=== PATIENT | male | born 1945 | race African-American/Black ===

== ENCOUNTER 2023-06-02 09:02 | Day surgery (SDC) | payer OTHER ==
[2023-05-24 15:14] VITALS: BMI 23.2
[2023-06-02 11:55] VITALS: BP 119/55; PULSE 68; TEMP 97.8
[2023-06-02 12:00] VITALS: RESP 18
== END 2023-06-02 11:55 ==
LOC: FASU-ENDO 09:02
PROVIDERS: ATTEND Internal Medicine Gastroenterology
PROC: 0DJD8ZZ Inspection of Lower Intestinal Tract, Via Natural or Artificial Opening Endoscopic (ICD-10-PCS; principal; 2023-06-02 10:34)
DX: Z12.11 Encounter for screening for malignant neoplasm of colon (principal); K64.1 Second degree hemorrhoids

== ENCOUNTER 2024-04-22 10:26 | Emergency (ER) | payer OTHER ==
[2024-04-22 10:38] VITALS: BMI 20.9
[2024-04-22 12:23] LABS: BASO % 0.3 % (0-2.0); EOS % 2.3 % (0-4.5); HEMATOCRIT 43.4 % (35.4-49); HEMOGLOBIN 14.4 GM/dL (11.7-16.9); MCH 27.3 pg (25.7-33.7); MCHC 33.1 g/dl (32.0-35.9); MEAN CELL VOLUME 82.5 fl (80-96); MEAN PLT VOLUME 8.6 fl (7.5-11.1); MONO % 13.4 % (3.8-10.2); PLATELET COUNT 149 10^3/uL (134-434); RBC 5.26 M/mm3 (4.00-5.60); RDW 15.3 % (11.9-15.9); WHITE BLOOD COUNT 5.6 K/mm3 (4.0-10.0)
[2024-04-22 13:27] LABS: ALBUMIN 3.7 g/dl (3.4-5.0); CALCIUM 8.8 mg/dL (8.5-10.1)
[2024-04-22 13:30] LABS: CREATININE 1.1 mg/dL (0.55-1.3)
[2024-04-22 13:33] LABS: BILIRUBIN,TOTAL 0.7 mg/dL (0.2-1); TOT PROT 6.9 g/dl (6.4-8.2)
[2024-04-22] MEDS: DIPHTH,PERTUSS(ACELL),TET 0.5 ML DISP.SYRIN IM ONE (14:27)
[2024-04-22] MEDS ORDERED: DIPHTH,PERTUSS(ACELL),TET 0.5 ML DISP.SYRIN IM ONE (14:27)
[2024-04-22 14:55] VITALS: BP 119/64; PULSE 72; RESP 17; TEMP 98
== END 2024-04-22 16:35 ==
LOC: JER 10:26
PROC: 0HQ1XZZ Repair Face Skin, External Approach (ICD-10-PCS; principal; 2024-04-22)
PROC: 3E0234Z Introduction of Serum, Toxoid and Vaccine into Muscle, Percutaneous Approach (ICD-10-PCS; 2024-04-22)
DX: S01.112A Laceration without foreign body of left eyelid and periocular area, initial encounter (principal); W19.XXXA Unspecified fall, initial encounter; Y92.129 Unspecified place in nursing home as the place of occurrence of the external cause; Z23 Encounter for immunization
CPT/HCPCS: 36415; 70450-TC; 71046-TC-FY; 72125-TC; 72170-TC-FY; 80053; 85025; 90715; 93005; 93010; 99285-25

== ENCOUNTER 2024-04-23 13:28 | Inpatient (IN) | payer OTHER ==
[2024-04-23 14:09] LABS: HEMATOCRIT 43.4 % (35.4-49); HEMOGLOBIN 14.4 GM/dL (11.7-16.9); MCH 27.1 pg (25.7-33.7); MCHC 33.1 g/dl (32.0-35.9); MEAN CELL VOLUME 81.9 fl (80-96); MEAN PLT VOLUME 8.6 fl (7.5-11.1); PLATELET COUNT 149 10^3/uL (134-434); RDW 15.6 % (11.9-15.9); WHITE BLOOD COUNT 5.9 K/mm3 (4.0-10.0)
[2024-04-23 14:42] LABS: CHLORIDE 110 mmol/L (98-107); SODIUM 137 mmol/L (136-145)
[2024-04-23 14:44] LABS: CALCIUM 8.8 mg/dL (8.5-10.1)
[2024-04-23 14:45] LABS: ALBUMIN 3.6 g/dl (3.4-5.0); BLOOD UREA NITROGEN 15.7 mg/dL (7-18); CO2 24 mmol/L (21-32); GLUCOSE,RANDOM 118 mg/dL (74-106)
[2024-04-23 14:48] LABS: CREATININE 1.3 mg/dL (0.55-1.3); SGOT/AST 45 U/L (15-37); SGPT/ALT 26 U/L (13-61)
[2024-04-23 14:50] LABS: BILIRUBIN,TOTAL 0.6 mg/dL (0.2-1); TOT PROT 7.2 g/dl (6.4-8.2)
[2024-04-23 14:51] LABS: ALK PHOS 56 U/L (45-117); ANION GAP 4 mmol/L (4-13); POTASSIUM 6.8 mmol/L (3.5-5.1)
[2024-04-23] MEDS: SODIUM CHLORIDE 1,000 ML IV SCH (16:55)
[2024-04-23] MEDS: HEPARIN NA (PORCINE) 5,000 UNITS/ML 1ML VIAL SQ SCH (21:32)
[2024-04-24 08:45] LABS: POTASSIUM 3.5 mmol/L (3.5-5.1)
[2024-04-24 08:54] LABS: BLOOD UREA NITROGEN 13.3 mg/dL (7-18); CALCIUM 8.6 mg/dL (8.5-10.1)
[2024-04-24 08:55] LABS: ALBUMIN 3.5 g/dl (3.4-5.0)
[2024-04-24 08:59] LABS: BILIRUBIN,TOTAL 0.8 mg/dL (0.2-1)
[2024-04-24 09:00] LABS: TOT PROT 6.3 g/dl (6.4-8.2)
[2024-04-24 21:27] LABS: PH,URINE 5.5 (5.0-8.0); URINE APPEARANCE CLEAR; URINE BILIRUBIN NEGATIVE (NEGATIVE); URINE COLOR YELLOW; URINE GLUCOSE (UA) NEGATIVE (NEGATIVE); URINE KETONE NEGATIVE (NEGATIVE); URINE LEUK ESTERASE NEGATIVE (NEGATIVE); URINE NITRITE NEGATIVE (NEGATIVE); URINE PROTEIN NEGATIVE (NEGATIVE); URINE UROBILINOGEN 0.2 mg/dL (0.2-1.0)
[2024-04-25 15:32] VITALS: BMI 19.1
[2024-04-25 22:01] LABS: N-TERMINAL BNP 130.9 pg/ml (5-450)
[2024-04-26 09:33] VITALS: BP 112/67; PULSE 75; RESP 17; TEMP 97.5
== END 2024-04-26 11:15 | DRG 312 ==
LOC: JER 13:28 → JERBED 14:53 → OBSVTOIN 14:53 → J4W 21:03
PROVIDERS: ADMIT Internal Medicine; ATTEND Internal Medicine
DX: R55 Syncope and collapse (principal); F03.90 Unspecified dementia, unspecified severity, without behavioral disturbance, psychotic disturbance, mood disturbance, and anxiety; E11.9 Type 2 diabetes mellitus without complications; I10 Essential (primary) hypertension; E86.0 Dehydration; F10.10 Alcohol abuse, uncomplicated; R27.0 Ataxia, unspecified; E87.5 Hyperkalemia; S01.112A Laceration without foreign body of left eyelid and periocular area, initial encounter; W07.XXXA Fall from chair, initial encounter; Y92.128 Other place in nursing home as the place of occurrence of the external cause; Y99.9 Unspecified external cause status
CPT/HCPCS: 36415; 70450-TC; 71045-TC-FY; 71046-TC-FY; 72125-TC; 72170-TC-FY; 80053; 80061; 81003; 82140; 82607; 82962; 83036; 83880; 84443; 84484; 85025; 85027; 86780; 87086; 90715; 93005; 93010; 93306-TC; 99285-25; J1644